=== PATIENT | male | born 1950 | race Caucasian/White ===

== ENCOUNTER → 2017-03-17 | Outpatient (CLI) | payer OTHER ==
[~2017-03-17] MED LIST: ASPI1TAB2 PO; LEVO112T4 PO; LISI-167 PO; MULT-717 PO; PANT40TA5 PO
[2017-03-17 15:12] LABS: BLOOD UREA NITROGEN 14 mg/dL (7-18)
[2017-03-17 15:15] LABS: ASPARTATE AMINO TRANSFERASE 24 U/L (15-37)
== END | disposition home or self-care (01) ==
LOC: STAR 13:45
PROVIDERS: ATTEND Neurological Surgery
DX: Z01.811 Encounter for preprocedural respiratory examination (principal); R91.8 Other nonspecific abnormal finding of lung field; M48.02 Spinal stenosis, cervical region; M50.30 Other cervical disc degeneration, unspecified cervical region; R79.1 Abnormal coagulation profile
CPT/HCPCS: 36415; 71020; 80053; 81003; 85025; 85610; 85730; 93005

== ENCOUNTER 2017-03-26 05:36 | Inpatient (IN) | payer OTHER ==
[2017-03-17 14:13] VITALS: BP 133/81
[~2017-03-26] VITALS: Ht 175.3 cm; Wt 60.0 kg
[2017-03-26] MEDS ORDERED: LACTATED RINGERS 1,000 ML IV SCH (06:03)
[2017-03-26] MEDS ORDERED: ACET-1600 PO (06:05)
[2017-03-26] MEDS ORDERED: BUPIVACAINE/PF-EPI 0.5% 1:200K ONE (06:08)
[2017-03-26] MEDS ORDERED: BACITRACIN 50,000 UNIT ONE (06:08)
[2017-03-26] MEDS ORDERED: THROMBIN 5,000 UNIT VIAL TP ONE (06:08)
[2017-03-26] MEDS ORDERED: LIDOCAINE 1%, 2ML SQ PRN (06:30)
[2017-03-26] MEDS ORDERED: FENTANYL PF 250 MCG/5ML ONE (06:50)
[2017-03-26] MEDS ORDERED: KETAMINE 10 MG/ML, 20ML ONE (06:50)
[2017-03-26] MEDS ORDERED: OXYcodone 5 MG/5 ML ORAL.SOL UDC PO PRN (08:00)
[2017-03-26] MEDS ORDERED: hydrALAzine 20 MG/ML, 1ML IV PRN (08:00)
[2017-03-26] MEDS ORDERED: MIDAZOLAM 1 MG/ML, 2ML IV PRN (08:00)
[2017-03-26] MEDS ORDERED: ACETAMINOPHEN 325 MG TABLET PO PRN (08:00)
[2017-03-26] MEDS ORDERED: LABETALOL 5MG/ML, 20ML IV PRN (08:00)
[2017-03-26] MEDS ORDERED: HYDROmorphone 1 MG/ML, 1ML IV PRN (08:00)
[2017-03-26] MEDS ORDERED: PROMETHAZINE 25 MG/ML, 1ML IV PRN (08:00)
[2017-03-26] MEDS ORDERED: ONDANSETRON 2MG/ML, 2ML IVPush PRN ×2 (08:00→09:00)
[2017-03-26] MEDS ORDERED: MEPERIDINE/PF 25MG/0.5ML IVPush PRN (08:00)
[2017-03-26] MEDS ORDERED: SENNA/DOCUSATE TABLET PO PRN (09:00)
[2017-03-26] MEDS ORDERED: BISACODYL 10 MG SUPP PR PRN (09:00)
[2017-03-26] MEDS ORDERED: morphine SULFATE 10 MG/ML, 1ML IVPush PRN (09:00)
[2017-03-26] MEDS ORDERED: PROMETHAZINE 25 MG/ML, 1ML IM PRN (09:00)
[2017-03-26] MEDS: SODIUM CHLORIDE FLUSH 10ML SYR IVF SCH ×2 (09:00→20:50)
[2017-03-26] MEDS ORDERED: HYDROcodone/APAP 5/325 TABLET PO PRN (09:00)
[2017-03-26] MEDS ORDERED: PHARMACY MAY ADJ FOR RENAL FX MC PRN (09:00)
[2017-03-26] MEDS ORDERED: DIPHENHYDRAMINE 50 MG/ML, 1ML IVPush PRN (09:00)
[2017-03-26] MEDS ORDERED: ACETAMINOPHEN 325 MG/10.15 ML UDC ONE (09:01)
[2017-03-26] MEDS ORDERED: FENTANYL PF 100 MCG/2ML ONE (09:01)
[2017-03-26] MEDS ORDERED: ACETAMINOPHEN 650 MG/20.3 ML UDC ONE (09:01)
[2017-03-26] MEDS ORDERED: OXYcodone 5 MG/5 ML ORAL.SOL UDC ONE (09:02)
[2017-03-26] MEDS ORDERED: METHOCARBAMOL 750 MG TABLET ONE (09:10)
[2017-03-26] MEDS: METHOCARBAMOL 750 MG TABLET PO PRN ×2 (09:15→20:50)
[2017-03-26] MEDS: FENTANYL PF 100 MCG/2ML IV PRN ×3 (09:15→09:50)
[2017-03-26] MEDS ORDERED: hydrALAzine 20 MG/ML, 1ML ONE (09:21)
[2017-03-26] MEDS: D5%-0.9% NACL+KCL 20MEQ 1,000 ML IV SCH (11:28)
[2017-03-26] MEDS: LEVOTHYROXINE 112 MCG TABLET PO SCH (11:28)
[2017-03-26 14:01] VITALS: BP 122/79
[2017-03-26] MEDS ORDERED: CEFAZOLIN 1,000 MG ONE (15:58)
[2017-03-26] MEDS ORDERED: ONDANSETRON 2MG/ML, 2ML ONE (15:58)
[2017-03-26] MEDS ORDERED: PROPOFOL 10 MG/ML, 50ML ONE (15:58)
[2017-03-26] MEDS ORDERED: SUCCINYLCHOLINE 20 MG/ML, 10ML ONE (15:58)
[2017-03-26] MEDS ORDERED: METOCLOPRAMIDE 5 MG/ML, 2ML ONE (15:58)
[2017-03-26] MEDS ORDERED: LABETALOL 5MG/ML 40ML VIAL ONE (15:58)
[2017-03-26] MEDS ORDERED: DEXAMETHASONE 4 MG/ML, 1ML ONE (15:58)
[2017-03-26] MEDS: HYDROcodone/APAP 10/325 MG TABLET PO PRN (16:14)
[2017-03-26] MEDS: CEFAZOLIN PMX 1GM/50ML 50 ML IVPB SCH (16:14)
[2017-03-26 18:44] VITALS: BP 155/80
[2017-03-26] MEDS: LISINOPRIL 10 MG TABLET PO SCH (20:50)
[2017-03-27] MEDS: D5%-0.9% NACL+KCL 20MEQ 1,000 ML IV SCH (00:20)
[2017-03-27] MEDS: CEFAZOLIN PMX 1GM/50ML 50 ML IVPB SCH (00:20)
[2017-03-27] MEDS: HYDROcodone/APAP 10/325 MG TABLET PO PRN ×2 (00:22→09:11)
[2017-03-27 02:33] VITALS: BP 132/73
[2017-03-27] MEDS: LEVOTHYROXINE 112 MCG TABLET PO SCH (06:31)
[2017-03-27] MEDS: METHOCARBAMOL 750 MG TABLET PO PRN (06:36)
[2017-03-27 07:28] VITALS: BP 131/90
[2017-03-27] MEDS: LISINOPRIL 10 MG TABLET PO SCH (07:30)
[2017-03-27] MEDS ORDERED: PANTOPROZOLE 40MG TABLET PO SCH (07:30)
[2017-03-27] MEDS: SODIUM CHLORIDE FLUSH 10ML SYR IVF SCH (07:30)
[2017-03-27] MEDS ORDERED: CEPH-368 PO (09:28)
[2017-03-27] MEDS ORDERED: HYDR-3307 PO (09:28)
[2017-03-27] MEDS ORDERED: METH750T87 PO (09:28)
== END 2017-03-27 09:44 | disposition home or self-care (01) | DRG 472 ==
LOC: ORIP 05:36 → 4NOR 10:51 → DCLOUNGE 03-27 09:28
PROVIDERS: ADMIT Neurological Surgery; ATTEND Neurological Surgery
PROC: 0RB30ZZ Excision of Cervical Vertebral Disc, Open Approach (ICD-10-PCS; 2017-03-26)
PROC: 4A11X4G Monitoring of Peripheral Nervous Electrical Activity, Intraoperative, External Approach (ICD-10-PCS; 2017-03-26)
PROC: 0RG20A0 Fusion of 2 or more Cervical Vertebral Joints with Interbody Fusion Device, Anterior Approach, Anterior Column, Open Approach (ICD-10-PCS; principal; 2017-03-26 07:00)
DX: M48.02 Spinal stenosis, cervical region (principal); E44.1 Mild protein-calorie malnutrition; M50.321 Other cervical disc degeneration at C4-C5 level; M50.121 Cervical disc disorder at C4-C5 level with radiculopathy; M50.122 Cervical disc disorder at C5-C6 level with radiculopathy; M19.90 Unspecified osteoarthritis, unspecified site; G43.909 Migraine, unspecified, not intractable, without status migrainosus; I10 Essential (primary) hypertension; E03.9 Hypothyroidism, unspecified; K21.9 Gastro-esophageal reflux disease without esophagitis; Z87.891 Personal history of nicotine dependence; Z83.3 Family history of diabetes mellitus
CPT/HCPCS: 36415; 72040; 86850; 86900; C1713; J0690; J1100; J2405; J2704; J3010; C1762; C1778; J0330; J0360; J2765; J3480; J7120